=== PATIENT | female | born 1950 | race Caucasian/White ===

== ENCOUNTER 2020-10-30 05:38 | Emergency (ER) | payer OTHER, BC, SELFPAY ==
[~2020-10-30] VITALS: Ht 157.5 cm; Wt 82.6 kg
[2020-10-30 05:40] VITALS: BP_SYST 162
[2020-10-30] MEDS: ONDANSETRON 4 MG ODT TAB PO ONE (06:23)
[2020-10-30] MEDS: TRANEXAMIC ACID 1,000 MG/10 ML VIAL IV ONE (06:23)
[2020-10-30 06:56] LABS: BASOPHILS % (AUTO) 0.5 % (0.0-2.0); EOSINOPHILS # (AUTO) 0.2 K/uL (0.0-0.4); EOSINOPHILS % (AUTO) 2.7 % (0.0-4.0); HEMATOCRIT 35.7 % (36-48); HEMOGLOBIN 11.9 g/dL (12.0-16.0); LYMPHOCYTES # (AUTO) 1.5 K/uL (1.0-5.5); LYMPHOCYTES % (AUTO) 22.8 % (20.5-51.5); MEAN CORPUSCULAR HEMOGLOBIN 29 pg (27-31); MEAN CORPUSCULAR HGB CONC 33 % (32-36); MEAN CORPUSCULAR VOLUME 86 fL (79.0-98.0); MONOCYTES # (AUTO) 0.6 K/uL (0.0-1.0); MONOCYTES % (AUTO) 9.5 % (1.7-9.3); NEUTROPHILS # (AUTO) 4.3 K/uL (1.8-7.7); NEUTROPHILS % (AUTO) 64.5 % (40.0-70.0); PLATELET COUNT (AUTO) 369 K/uL (130-430); RED BLOOD CELL COUNT(AUTO) 4.17 MIL/uL (4.2-6.2); RED CELL DISTRIBUTION WIDTH 13.3 % (9.0-15.0); WHITE BLOOD COUNT (AUTO) 6.7 K/uL (4.8-10.8)
[2020-10-30] MEDS ORDERED: LISI-600 PO (10:17)
[2020-10-30 10:20] VITALS: BP_SYST 158
== END 2020-10-30 10:20 | disposition home or self-care (01) ==
LOC: SED 05:38
DX: R04.0 Epistaxis (principal); I10 Essential (primary) hypertension; Z88.0 Allergy status to penicillin
CPT/HCPCS: 36415; 76376; 85025; 85610-TC; 85730-TC; 99284

== ENCOUNTER 2020-10-30 18:51 | Emergency (ER) | payer OTHER, BC, SELFPAY ==
[~2020-10-30] VITALS: Ht 154.9 cm; Wt 81.6 kg
[~2020-10-30 18:51] MED LIST: LISI-600 PO
[2020-10-30 19:20] VITALS: BP_SYST 143
[2020-10-30 20:52] VITALS: BP_SYST 156
== END 2020-10-30 20:52 | disposition home or self-care (01) ==
LOC: SED 18:51
DX: R04.0 Epistaxis (principal); I10 Essential (primary) hypertension; Z88.0 Allergy status to penicillin
CPT/HCPCS: 99281

== ENCOUNTER 2022-08-02 13:27 | Emergency (ER) | payer OTHER, BC ==
[~2022-08-02] VITALS: Ht 165.1 cm; Wt 99.8 kg
[~2022-08-02 13:27] MED LIST changes: -LISI-600 PO; +LISI20TA30 PO
[2022-08-02 13:31] VITALS: BP_SYST 167
[2022-08-02 15:09] LABS: BASOPHILS % (AUTO) 0.4 % (0.0-2.0); EOSINOPHILS # (AUTO) 0.1 K/uL (0.0-0.4); EOSINOPHILS % (AUTO) 1.5 % (0.0-4.0); HEMATOCRIT 37.4 % (36-48); LYMPHOCYTES # (AUTO) 0.9 K/uL (1.0-5.5); LYMPHOCYTES % (AUTO) 18.7 % (20.5-51.5); MEAN CORPUSCULAR HEMOGLOBIN 30 pg (27-31); MEAN CORPUSCULAR HGB CONC 35 % (32-36); MEAN CORPUSCULAR VOLUME 86 fL (79.0-98.0); MONOCYTES # (AUTO) 0.4 K/uL (0.0-1.0); MONOCYTES % (AUTO) 8.1 % (1.7-9.3); NEUTROPHILS # (AUTO) 3.5 K/uL (1.8-7.7); NEUTROPHILS % (AUTO) 71.3 % (40.0-70.0); PLATELET COUNT (AUTO) 216 K/uL (130-430); RED BLOOD CELL COUNT(AUTO) 4.34 MIL/uL (4.2-6.2); RED CELL DISTRIBUTION WIDTH 13.8 % (9.0-15.0); WHITE BLOOD COUNT (AUTO) 4.9 K/uL (4.8-10.8)
[2022-08-02 15:21] LABS: ANION GAP 7 (5-15); CALCIUM 8.8 mg/dL (8.4-11.0); CHLORIDE 107 mmol/L (98-107); CREATININE 1.33 mg/dL (0.55-1.30); GLUCOSE 103 mg/dL (70-99); UREA NITROGEN, BLOOD 20 mg/dL (8-21)
[2022-08-02 15:26] LABS: PROTHROMBIN TIME 9.7 SECS (9.5-12.5)
[2022-08-02 15:32] LABS: ALANINE AMINOTRANSFERASE 20 U/L (12-78); ALBUMIN 3.6 g/dL (3.4-4.8); ASPARTATE AMINOTRANSFERASE 17 U/L (10-37); TOTAL BILIRUBIN 0.2 mg/dL (0.0-1.0)
[2022-08-02 17:05] VITALS: BP_SYST 144
== END 2022-08-02 17:31 | disposition short-term general hospital (02) ==
LOC: SED 13:27
DX: I60.9 Nontraumatic subarachnoid hemorrhage, unspecified (principal); G93.89 Other specified disorders of brain; I10 Essential (primary) hypertension; Z88.0 Allergy status to penicillin; Z79.899 Other long term (current) drug therapy; Z20.822 Contact with and (suspected) exposure to COVID-19
CPT/HCPCS: 36415; 70450-TC; 71045; 76376; 80053; 84484; 85025; 85610-TC; 85730-TC; 93005; 99291